=== PATIENT | female | born 1985 | race Caucasian/White ===

== ENCOUNTER → 2017-09-26 | Outpatient (REF) | payer OTHER | LOC: M SFHCLERA 16:04 | DX: J02.9 Acute pharyngitis, unspecified (principal) ==

== ENCOUNTER → 2018-04-13 | Outpatient (CLI) | payer OTHER ==
[~2018-04-13] MED LIST: ISOVUE-370 76% 100ML VIAL (Q9967) As Ordered ONE
--- NOTE | 2018-04-13 14:52 | REP ---
CT NECK WITH CONTRAST: HISTORY: Neck mass. CONTRAST: Isovue 370, 75 mL. A B.B was placed on the right side of the neck at the C5-6 level. The naso-, rio- and hypopharynx, larynx and subglottic trachea are normal in appearance. The salivary and thyroid glands are normal in size and density. A well-circumscribed mass is present in the right parapharyngeal space at the level of the rio- and hypopharynx. There is minimal heterogeneous enhancement with contrast. The mass measures 2.4 cm in transverse x 2.4 cm in AP x 4.5 cm in cephalocaudal dimensions. There is no mass effect on the rio- or hypopharynx. Small lymph nodes less than 1 cm in size are present in the left internal jugular chain, posterior triangles, submandibular and submental areas. The lung apices are clear. The visualized sinuses are clear. IMPRESSION: There is a mass with minimal heterogeneous enhancement in the right parapharyngeal space. This may represent a pleomorphic adenoma, neurofibroma, hemangioma or possibly enlarged lymph node mass. Electronically Signed by Alejandro Aly MD 04/13/2018 03:24 P
== END ==
LOC: M RAD 12:50
PROVIDERS: ATTEND Family Medicine
DX: R22.1 Localized swelling, mass and lump, neck (principal)
CPT/HCPCS: 70491; Q9967

== ENCOUNTER → 2018-05-18 | Outpatient (CLI) | payer OTHER ==
[~2018-05-18] MED LIST changes: -ISOVUE-370 76% 100ML VIAL (Q9967) As Ordered ONE; +LIDOCAINE 1% MDV 20ML VIAL As Ordered ONE
[2018-05-18 12:57] LABS: INR 1.06; PARTIAL THROMBOPLASTIN TIME 30.9 SECONDS (25.4-37.6); PROTHROMBIN TIME 13.9 SECONDS (12.1-14.4)
--- NOTE | 2018-05-18 16:20 | REP ---
ULTRASOUND-GUIDED RIGHT NECK MASS BIOPSY The procedure was performed under the direct supervision of Dr. Guerra. The patient has a history of a mass with minimal heterogeneous enhancement in the right parapharyngeal space seen on a previous CT scan dated 04/13/2018. The risks and benefits of the procedure were explained to the patient and informed consent was obtained. The right neck mass was localized using ultrasound guidance. The skin was prepped and draped in a sterile fashion. 1% lidocaine was used as a local anesthetic. Using ultrasound guidance eight fine-needle aspirations were obtained using 25 gauge needles. All samples were sent to lab for analysis. The patient tolerated the procedure well and there were no immediate complications. After the appropriate amount of monitored convalescence the patient was discharged from the department. Reviewed by LUIS Holland 05/18/2018 04:06 P Electronically Signed by Antony Guerra MD 05/18/2018 04:11 P
== END ==
LOC: M RADPRO 11:23
PROVIDERS: ATTEND Surgery
DX: R22.1 Localized swelling, mass and lump, neck (principal)

== ENCOUNTER → 2018-06-05 | Outpatient (CLI) | payer OTHER ==
--- NOTE | 2018-06-05 14:12 | REP ---
LIMITED RIGHT SUBMANDIBULAR ULTRASOUND: Limited right submandibular ultrasound performed prior to a scheduled ultrasound-guided biopsy. Biopsy was attempted by LUIS Prado. A nodule was localized. It measures 4.5 x 2.7 x 2.3 cm. Local anesthesia was given under sterile conditions, and a 17-gauge introducer needle was placed to the margin of the nodule using continuous ultrasound guidance. The patient became vasovagal and lost consciousness. The biopsy was terminated. Supportive measures were administered. The patient immediately became responsive and was observed and hydrated. She was released in stable condition. Electronically Signed by Antony Guerra MD 06/06/2018 10:26 A
== END ==
LOC: M RADPRO 10:40
PROVIDERS: ATTEND Surgery
DX: R55 Syncope and collapse (principal)